=== PATIENT | female | born 1930 | race Caucasian/White ===

== ENCOUNTER 2016-10-03 12:41 | Inpatient (IN) | payer OTHER ==
--- NOTE | 2016-10-03 14:46 | PDOC ---
History of Present Illness - History of Present Illness Initial Comments: 10/03/16 15:01 Patient is an 86 year old female with significant medical hx of dementia who has been sent to the ED by Dr. Vick for bowel incontinence and AMS. The patient is an unreliable historian. Per daughter, the patient has recently developed bowel incontinence, having episodes multiple times per day. The patient is aware that she has to defecate but will have a bowel movement unknowingly. Daughter also reports the patient has been profoundly weak. <Cindy Cuenca - Last Filed: 10/03/16 15:42> - General History Source: Patient Exam Limitations: No Limitations <Darcy Anna - Last Filed: 10/03/16 18:23> - General Chief Complaint: Weakness Stated Complaint: LAB VARIANCE (PCP SENT) Time Seen by Provider: 10/03/16 13:20 Past History <Cindy Cuenca - Last Filed: 10/03/16 15:42> - Past Medical History Other medical history: PATIENT DENIES MEDICAL HX - Surgical History Abdominal Surgery: (TUBAL LIGATION) - Psycho/Social/Smoking Cessation Hx Suicidal Ideation: No Smoking History: Never smoked Hx Alcohol Use: No Drug/Substance Use Hx: No <Darcy Anna - Last Filed: 10/03/16 18:23> - Past Medical History Allergies/Adverse Reactions: Allergies Allergy/AdvReac Type Severity Reaction Status Date / Time No Known Allergies Allergy Verified 10/03/16 13:01 Review of Systems - Review of Systems Comments:: 10/03/16 15:01 GENERAL/CONSTITUTIONAL: No: fever, chills, loss of appetite. HEAD, EYES, EARS, NOSE AND THROAT: No: change in vision, ear pain, discharge, sore throat, throat swelling. CARDIOVASCULAR: No: chest pain, lightheadedness, palpitations, syncope RESPIRATORY: No: cough, shortness of breath, wheezing, hemoptysis, stridor. GASTROINTESTINAL: Yes: bowel incontinence. No: nausea, vomiting, abdominal cramping, diarrhea, rectal bleeding, constipation. GENITOURINARY: Yes: frequency. No: dysuria, hematuria, urgency, flank pain. MUSCULOSKELETAL: No: back pain, neck pain, joint pain, muscle swelling or pain SKIN AND BREASTS: No: lesions, pallor, rash or easy bruising. NEUROLOGIC: Yes: AMS, weakness No: headache, vertigo, paresthesias ENDOCRINE: No: unexplained weight gain or loss HEMATOLOGIC/LYMPHATIC: No: anemia, easy bleeding, swelling nodes <Cindy Cuenca - Last Filed: 10/03/16 15:42> *Physical Exam - Vital Signs Last Vital Signs Temp Pulse Resp BP Pulse Ox 125/56 10/03/16 12:56 - Physical Exam Comments: 10/03/16 15:05 GENERAL: The patient is in no acute distress. HEAD: Normal with no signs of trauma. EYES: PERRLA, EOMI, sclera anicteric, conjunctiva clear. ENT: Ears normal, nares patent, oropharynx clear without exudates. Moist mucous membranes. NECK: Normal range of motion, supple without lymphadenopathy, JVD, or masses. LUNGS: Breath sounds equal, clear to auscultation bilaterally. No wheezes, and no crackles. HEART:Regular rate and rhythm, normal S1 and S2 without murmur, rub or gallop. ABDOMEN: Soft, distended, nontender, normoactive bowel sounds. No guarding, no rebound. EXTREMITIES: Normal range of motion, no edema. No clubbing or cyanosis. No erythema, or tenderness. NEUROLOGICAL: Alert and oriented x2. Cranial nerves II through XII grossly intact. Normal speech. No focal neurological deficits. MUSCULOSKELETAL: Back non-tender to palpation, no CVA tenderness SKIN: Warm, Dry, normal turgor, no rashes or lesions noted. <JoellenWilsonCindy - Last Filed: 10/03/16 15:42> - Vital Signs Last Vital Signs Temp Pulse Resp BP Pulse Ox 125/56 10/03/16 12:56 <Darcy Anna - Last Filed: 10/03/16 18:23> Heart Score/ECG Review #1 ECG reviewed & interpreted by me at: 18:22 10/03/16 18:22 Twelve-lead EKG was performed and reviewed by me. There is normal sinus rhythm with a normal rate of 85 bpm. The axis is normal. The intervals are normal - pr: 124ms, QRS:76ms, QTc:485ms. There are no ST elevations or depressions. T waves upright <Darcy Anna - Last Filed: 10/03/16 18:23> ED Treatment Course - LABORATORY CBC & Chemistry Diagram: 10/03/16 14:00 10/03/16 14:00 - RADIOLOGY Radiograph Interpretation: 10/03/16 15:42 Chest X-Ray Impression: No evidence of vascular congestion, pulmonary infiltrates, or pneumothorax. Questionable blunting of the right costophrenic angle. Minimal right basilar atelectasis is suggested. Reported By: Ayan Valadez MD <Cindy Cuenca - Last Filed: 10/03/16 15:42> - LABORATORY CBC & Chemistry Diagram: 10/03/16 14:00 10/03/16 14:00 - RADIOLOGY Radiology Studies Ordered: Category Date Time Status CHEST X-RAY PORTABLE* [RAD] Stat Radiology 10/03/16 13:21 Completed <Darcy Anna - Last Filed: 10/03/16 18:23> Medical Decision Making - Medical Decision Making 10/03/16 14:45 A portion of this note was documented by scribe services under my direction. I have reviewed the details of the note, within reason, and agree with the documentation with the following case summary and management plan written by me. Nursing documentation reviewed and incorporated into medical decision making 10/03/16 16:45 This is a relatively healthy 86 yo F presenting to the ER with a complaint of "frequent urination" Her daughter has noted that over the past month, she has become increasingly confused Over the past week to 2 weeks pt has been weak, laying in the couch most of the day Pt knows that she needs to have a bowel movement and does it on herself No fevers Pt denies dysuria, hematuria, abd pain 10/03/16 16:45 Laboratory Tests 10/03/16 10/03/16 10/03/16 14:00 14:00 14:00 WBC 12.5 H Hgb 11.2 Hct 34.2 Plt Count 449 H Neutrophils % 81.8 Lymphocytes % 10.2 INR 1.43 H Sodium 138 Potassium 3.5 Chloride 98 Carbon Dioxide 33 H Anion Gap 7 L BUN 12 Creatinine 0.5 L Random Glucose 78 Creatine Kinase 49 Troponin I < 0.02 Urine Ketones Urine Blood Urine Nitrite Ur Leukocyte Esterase 10/03/16 15:45 WBC Hgb Hct Plt Count Neutrophils % Lymphocytes % INR Sodium Potassium Chloride Carbon Dioxide Anion Gap BUN Creatinine Random Glucose Creatine Kinase Troponin I Urine Ketones 1+ H Urine Blood 3+ H Urine Nitrite Positive Ur Leukocyte Esterase 2+ H Case reviewed with Dr Rogel Will admit to the hospitalist service Will treat uti Awaiting head CT Awaiting Abd and pelvis CT <Darcy Anna - Last Filed: 10/03/16 18:23> *DC/Admit/Observation/Transfer - Attestations Scribe Attestion: 10/03/16 15:05 Documentation prepared by Cindy Cuenca, acting as medical laboratory specialist for Darcy Anna MD. <Cindy Cuenca - Last Filed: 10/03/16 15:42> - Discharge Dispostion Admit: Yes <Darcy Anna - Last Filed: 10/03/16 18:23> Diagnosis at time of Disposition: UTI (urinary tract infection) Qualifiers: Urinary tract infection type: acute cystitis Hematuria presence: without hematuria Qualified Code(s): N30.00 - Acute cystitis without hematuria - Discharge Dispostion Condition at time of disposition: Stable - Referrals
[2016-10-03 14:50] LABS: BASOPHIL 0.6 % (0-2.0); EOSINOPHIL 0.7 % (0-4.5); MCH 28.4 pg (25.7-33.7); MCHC 32.9 g/dl (32.0-36.0); MEAN CELL VOLUME 86.4 fl (80-96); MEAN PLT VOLUME 7.5 fl (7.5-11.1); NEUTROPHILS 81.8 % (42.8-82.8); PLATELET COUNT 449 K/MM3 (134-434); RDW 14.7 % (11.6-15.6); WHITE BLOOD COUNT 12.5 K/mm3 (4.0-10.0)
[2016-10-03] MEDS ORDERED: SODIUM CHLORIDE 1,000 ML IV STA (15:05)
[2016-10-03 15:15] LABS: ALBUMIN 2.6 g/dl (3.4-5.0); ANION GAP 7 (8-16); BILIRUBIN,TOTAL 0.6 mg/dL (0.2-1.0); CALCIUM 8.5 mg/dL (8.5-10.1); CO2 33 mmol/L (21-32); CREATININE 0.5 mg/dL (0.55-1.02); GLUCOSE,RANDOM 78 mg/dL (74-106); SGOT/AST 14 U/L (15-37); SGPT/ALT 18 U/L (12-78); TOT PROT 6.2 g/dl (6.4-8.2)
[2016-10-03 15:17] LABS: ALK PHOS 77 U/L (45-117); TROPONIN I < 0.02 ng/ml (0.00-0.05)
[2016-10-03 15:27] LABS: INR 1.43 (0.82-1.09); PROTHROMBIN TIME (PATIENT) 15.9 SEC (9.98-11.88)
--- NOTE | 2016-10-03 15:43 | EKG ---
Test Reason : Blood Pressure : / mmHG Vent. Rate : 085 BPM Atrial Rate : 085 BPM P-R Int : 124 ms QRS Dur : 076 ms QT Int : 408 ms P-R-T Axes : 052 -17 050 degrees QTc Int : 485 ms SINUS RHYTHM WITH PREMATURE ATRIAL COMPLEXES WITH ABERRANT CONDUCTION OTHERWISE NORMAL ECG WHEN COMPARED WITH ECG OF 16-OCT-2006 07:50, NO SIGNIFICANT CHANGE WAS FOUND Confirmed by FEDERICA MYERS MD ([id number]) on 10/03/2016 3:43:03 PM Referred By: Confirmed By:FEDERICA MYERS MD
[2016-10-03 16:15] LABS: URINE APPEARANCE CLEAR; URINE BILIRUBIN 1+ (NEGATIVE); URINE COLOR DK. BROWN; URINE GLUCOSE (UA) NEGATIVE (NEGATIVE); URINE KETONE 1+ (NEGATIVE); URINE UROBILINOGEN 1.0 E.U/dl E.U./dl (0.2-1.0)
[2016-10-03 16:20] LABS: URINE BLOOD 3+ (NEGATIVE); URINE LEUK ESTERASE 2+ (NEGATIVE); URINE NITRITE POSITIVE (NEGATIVE); URINE PROTEIN 3+ (NEGATIVE)
[2016-10-03] MEDS ORDERED: CEFTRIAXONE 1 GM in DEXTROSE 5%-WATER - 50 ML IVPB ONE (16:33)
[2016-10-03] MEDS ORDERED: CEFTRIAXONE 50 ML ONE (16:42)
[2016-10-03] MEDS ORDERED: ACETAMINOPHEN 325 MG TABLET (FP) PO PRN (17:52)
--- NOTE | 2016-10-03 18:14 | HP ---
CHIEF COMPLAINT: fecal incontinence; increased urinary frequency PCP: Dr. Vick HISTORY OF PRESENT ILLNESS: 86 year old female with no significant past medical history except for dementia (poor historian), presents with 2 month history of fecal incontinence, (15-20x per day, as per ), and increased urinary frequency as per patient. Patient was taken to her PCP today, found to have 7lb weight loss since last year, dramatic decline in cognition. As per family patient is unaware of symptoms. They also state that she has had increased abdominal extension over the past two months. Patient denies dysuria, hematuria, melena, hematochezia, fever, chills, nausea, vomiting, abdominal pain, chest pain, sob, or travel. ER course was notable for: (1)wbc 12.5 (2)CXR negative for acute pathology (3)head ct and abd/pelvic ct pending Recent Travel: no PAST MEDICAL HISTORY: none PAST SURGICAL HISTORY: hip sx Social History: Smoking:no Alcohol:no Drugs: no Family History: Allergies No Known Allergies Allergy (Verified 10/03/16 13:01) HOME MEDICATIONS: REVIEW OF SYSTEMS CONSTITUTIONAL: Positive: generalized weakness, malaise, loss of appetite, weight change Absent: fever, chills, diaphoresis, HEENT: Absent: rhinorrhea, nasal congestion, throat pain, throat swelling, difficulty swallowing, mouth swelling, ear pain, eye pain, visual changes CARDIOVASCULAR: Absent: chest pain, syncope, palpitations, irregular heart rate, lightheadedness , peripheral edema RESPIRATORY: Absent: cough, shortness of breath, dyspnea with exertion, orthopnea, wheezing, stridor, hemoptysis GASTROINTESTINAL: Positive: abdominal distension, diarrhea Absent: abdominal pain, , nausea, vomiting, , constipation, melena, hematochezia GENITOURINARY: Absent: dysuria, frequency, urgency, hesitancy, hematuria, flank pain, genital pain MUSCULOSKELETAL: Absent: myalgia, arthralgia, joint swelling, back pain, neck pain SKIN: Absent: rash, itching, pallor HEMATOLOGIC/IMMUNOLOGIC: Absent: easy bleeding, easy bruising, lymphadenopathy, frequent infections ENDOCRINE: Absent: unexplained weight gain, unexplained weight loss, heat intolerance, cold intolerance NEUROLOGIC: POsitive: mental status changes, bladder or bowel incontinence Absent: headache, focal weakness or paresthesias, dizziness, unsteady gait, seizure, PSYCHIATRIC: Absent: anxiety, depression, suicidal or homicidal ideation, hallucinations. PHYSICAL EXAMINATION Vital Signs - 24 hr 10/03/16 10/03/16 12:56 16:00 Pulse Rate [ 65 Apical] Respiratory 16 Rate Blood Pressure 125/56 Blood Pressure 118/60 [Right] O2 Sat by Pulse 96 Oximetry (%) GENERAL: Awake, alert, and fully oriented, in no acute distress. mild cognitive impairment HEAD: Normal with no signs of trauma. EYES: Pupils equal, round and reactive to light, extraocular movements intact, sclera anicteric, conjunctiva clear. No lid lag. EARS, NOSE, THROAT: Ears normal, nares patent, oropharynx clear without exudates. Moist mucous membranes. NECK: Normal range of motion, supple without lymphadenopathy, JVD, or masses. LUNGS: Breath sounds equal, mildy course LL bases HEART: Regular rate and rhythm, normal S1 and S2 without murmur, rub or gallop. ABDOMEN: + distended, normoactive bowel sounds, no guarding, no rebound, no masses. MUSCULOSKELETAL: Normal range of motion at all joints. No bony deformities or tenderness. No CVA tenderness. UPPER EXTREMITIES: 2+ pulses, warm, well-perfused. No cyanosis. No clubbing. No peripheral edema. LOWER EXTREMITIES: 2+ pulses, warm, well-perfused. No calf tenderness. No peripheral edema. NEUROLOGICAL: Cranial nerves II-XII intact. Normal speech. Normal gait. PSYCHIATRIC: Cooperative. Good eye contact. Appropriate mood and affect. SKIN: Warm, dry, normal turgor, no rashes or lesions noted, normal capillary refill. Laboratory Results - last 24 hr 10/03/16 10/03/16 10/03/16 13:21 14:00 14:00 WBC 12.5 H RBC 3.96 Hgb 11.2 Hct 34.2 MCV 86.4 MCHC 32.9 RDW 14.7 Plt Count 449 H MPV 7.5 Neutrophils % 81.8 Lymphocytes % 10.2 Monocytes % 6.7 Eosinophils % 0.7 Basophils % 0.6 INR 1.43 H Sodium Potassium Chloride Carbon Dioxide Anion Gap BUN Creatinine Creat Clearance w eGFR Random Glucose Calcium Total Bilirubin AST ALT Alkaline Phosphatase Creatine Kinase Troponin I Total Protein Albumin Urine Color Urine Appearance Urine pH Ur Specific [place] Urine Protein Urine Glucose (UA) Urine Ketones Urine Blood Urine Nitrite Urine Bilirubin Urine Urobilinogen Ur Leukocyte Esterase Blood Type B POSITIVE Antibody Screen Negative 10/03/16 10/03/16 14:00 15:45 WBC RBC Hgb Hct MCV MCHC RDW Plt Count MPV Neutrophils % Lymphocytes % Monocytes % Eosinophils % Basophils % INR Sodium 138 Potassium 3.5 Chloride 98 Carbon Dioxide 33 H Anion Gap 7 L BUN 12 Creatinine 0.5 L Creat Clearance w eGFR > 60 Random Glucose 78 Calcium 8.5 Total Bilirubin 0.6 AST 14 L ALT 18 Alkaline Phosphatase 77 Creatine Kinase 49 Troponin I < 0.02 Total Protein 6.2 L Albumin 2.6 L Urine Color Dk. brown Urine Appearance Clear Urine pH 6.0 Ur Specific [place] >= 1.030 Urine Protein 3+ H Urine Glucose (UA) Negative Urine Ketones 1+ H Urine Blood 3+ H Urine Nitrite Positive Urine Bilirubin 1+ H Urine Urobilinogen 1.0 e.u/dl Ur Leukocyte Esterase 2+ H Blood Type Antibody Screen Abdominal/pelvic CT: IMPRESSION: a 13 x 10 x 9 cm hypodense septated structure is seen within the midline of the lower pelvis which appears to represent nonspecific uterine enlargement which could be on the basis of confluent degenerative leiomyomas versus representing partially necrotic malignant disease. There is resultant extrinsic compression of the contiguous rectum with resultant effacement of the rectal lumen. Marked fecal retention is seen within the remainder of the colon. A small amount of free fluid is noted within the abdomen and pelvis bilaterally. There is a small to moderate right pleural effusion. Several hepatic cysts are seen. ASSESSMENT/PLAN: 86 year old female with no significant past medical history except for mild dementia symptoms (according to daughter), presenting with fecal incontinence x2 months, increase urinary frequency [id number], progressive decline in mental status the past few days, artemio loss 7lbs in the past year. Admitted for UTI , diarrhea. #Altered mental status possibly secondary to UTI: -baseline dementia, worsening the past week -treat underlying UTI -Head CT negative for acute pathology #UTI: -ceftriaxone 1gm IVPB day 2 #diarrhea: r/o malignancy due to ct findings -stool culture, ova/parasites -abdominal/ Pelvic CT: details above: septated structure in pelvic; compression of rectum; effacement of rectal lumen -transvaginal ultrasound: consider manager diesel/onc consult pending results FEN: Fluids: po Electrolytes: wnl Diet: regular VTE prophylaxis: lovenox Disposition: inpatient management Visit type - Emergency Visit Emergency Visit: Yes ED Registration Date: 10/03/16 Care time: The patient presented to the Emergency Department on the above date and was hospitalized for further evaluation of their emergent condition. - New Patient This patient is new to me today: Yes Date on this admission: 10/04/16 - Critical Care Critical Care patient: No
--- NOTE | 2016-10-03 18:25 | PN ---
Teaching Attending Note Name of Resident: Audra Dorsey ATTENDING PHYSICIAN STATEMENT I saw and evaluated the patient. I reviewed the resident's note and discussed the case with the resident. I agree with the resident's findings and plan as documented. SUBJECTIVE: This is an 86-year-old woman with a history of dementia who comes to the ER because of incontinence of stool, urinary frequency, weight loss and worsening confusion. OBJECTIVE: Vital Signs Period Temp Pulse Resp BP Sys/Cruz Pulse Ox Last 24 Hr 65 16 118-125/56-60 96 HEART: S1 S2, RRR LUNGS: Clear with decreased BS at right base ABDOMEN: soft, mild distention with mild suprapubic tenderness, normal BS EXTREMITIES: no edema ASSESSMENT AND PLAN: This is an 86-year-old woman with a history of dementia who comes to the ER because she has been incontinent of stool x 2 months, has urinary frequency, has weight loss and worsening confusion. 1. Diarrhea with incontinence of stool - CT abdomen/pelvis ordered - Check stool culture, O&P, C. difficile 2. UTI - Rocephin given in ER - Follow up urine culture 3. Dementia
[2016-10-03 19:46] LABS: CALCIUM OXALATE CRYSTALS RARE /hpf (NONE SEEN); URINE BACTERIA MANY /hpf (NONE SEEN); URINE RBC 30 /hpf (0-3); URINE WBC 16 /hpf (3-5)
[2016-10-04 07:31] LABS: ALBUMIN 2.3 g/dl (3.4-5.0); ALK PHOS 73 U/L (45-117); ANION GAP 8 (8-16); BASOPHIL 0.4 % (0-2.0); BILIRUBIN,TOTAL 0.5 mg/dL (0.2-1.0); CALCIUM 7.9 mg/dL (8.5-10.1); CO2 29 mmol/L (21-32); COCKROFT - GAULT 62.4665; CREATININE 0.5 mg/dL (0.55-1.02); EOSINOPHIL 0.8 % (0-4.5); GLUCOSE,RANDOM 90 mg/dL (74-106); MAGNESIUM 1.9 mg/dL (1.8-2.4); MCH 29.4 pg (25.7-33.7); MCHC 33.8 g/dl (32.0-36.0); MEAN CELL VOLUME 87.1 fl (80-96); MEAN PLT VOLUME 7.4 fl (7.5-11.1); NEUTROPHILS 81.1 % (42.8-82.8); PHOSPHOROUS 3.2 mg/dL (2.5-4.9); PLATELET COUNT 443 K/MM3 (134-434); RDW 14.6 % (11.6-15.6); SGOT/AST 10 U/L (15-37); SGPT/ALT 17 U/L (12-78); TOT PROT 5.7 g/dl (6.4-8.2); WHITE BLOOD COUNT 11.1 K/mm3 (4.0-10.0)
[2016-10-04] MEDS: ENOXAPARIN NA (PORCINE) 40 MG/0.4 ML DISP.SYRIN SQ SCH (09:42)
[2016-10-04] MEDS: cefTRIAXone 1 GM/50 ML BAG (PRE-DOCKED) IVPB SCH (09:42)
--- NOTE | 2016-10-04 13:47 | PN ---
Physical Exam: SUBJECTIVE: Patient seen and examined, no complaints, still with fecal incontinence,, urinary symptoms improved. OBJECTIVE: Vital Signs Period Temp Pulse Resp BP Sys/Cruz Pulse Ox Last 24 Hr 97.6 F-98.6 F 78-85 16-20 106-127/53-67 94-96 GENERAL: The patient is awake, alert, and fully oriented, in no acute distress. HEAD: Normal with no signs of trauma. EYES: PERRL, extraocular movements intact, sclera anicteric, conjunctiva clear. No ptosis. ENT: Ears normal, nares patent, oropharynx clear without exudates, moist mucous membranes. NECK: Trachea midline, full range of motion, supple. LUNGS: Breath sounds equal, clear to auscultation bilaterally, no wheezes, no crackles, no accessory muscle use. HEART: Regular rate and rhythm, S1, S2 without murmur, rub or gallop. ABDOMEN: Soft, nontender, +distended, normoactive bowel sounds, no guarding, no rebound, no hepatosplenomegaly, no masses. EXTREMITIES: 2+ pulses, warm, well-perfused, no edema. NEUROLOGICAL: Cranial nerves II through XII grossly intact. Normal speech, gait not observed. PSYCH: Normal mood, normal affect. SKIN: Warm, dry, normal turgor, no rashes or lesions noted Laboratory Results - last 24 hr 10/04/16 10/04/16 06:40 06:40 WBC 11.1 H RBC 3.62 Hgb 10.6 L Hct 31.5 L MCV 87.1 MCHC 33.8 RDW 14.6 Plt Count 443 H MPV 7.4 L Neutrophils % 81.1 Lymphocytes % 10.5 Monocytes % 7.2 Eosinophils % 0.8 Basophils % 0.4 Sodium 138 Potassium 3.5 Chloride 101 Carbon Dioxide 29 Anion Gap 8 BUN 13 Creatinine 0.5 L Creat Clearance w eGFR > 60 Random Glucose 90 Calcium 7.9 L Phosphorus 3.2 Magnesium 1.9 Total Bilirubin 0.5 AST 10 L D ALT 17 Alkaline Phosphatase 73 Total Protein 5.7 L Albumin 2.3 L Active Medications Generic Name Dose Route Start Last Admin Trade Name Freq PRN Reason Stop Dose Admin Acetaminophen 650 mg 10/03/16 17:52 Tylenol - PO Q4H PRN FEVER OR PAIN Ceftriaxone Sodium 1 gm 10/04/16 10:00 10/04/16 09:42 Rocephin 1gm Ivpb (Pre-Docked) IVPB 1 gm DAILY ZHANE Administration Enoxaparin Sodium 40 mg 10/04/16 10:00 10/04/16 09:42 Lovenox - SQ 40 mg DAILY ZHANE Administration Abdominal/pelvic CT: IMPRESSION: a 13 x 10 x 9 cm hypodense septated structure is seen within the midline of the lower pelvis which appears to represent nonspecific uterine enlargement which could be on the basis of confluent degenerative leiomyomas versus representing partially necrotic malignant disease. There is resultant extrinsic compression of the contiguous rectum with resultant effacement of the rectal lumen. Marked fecal retention is seen within the remainder of the colon. A small amount of free fluid is noted within the abdomen and pelvis bilaterally. There is a small to moderate right pleural effusion. Several hepatic cysts are seen. ASSESSMENT/PLAN: 86 year old female with no significant past medical history except for mild dementia symptoms (according to daughter), presenting with fecal incontinence x2 months, increase urinary frequency [id number], progressive decline in mental status the past few days, artemio loss 7lbs in the past year. Admitted for UTI , diarrhea. #Altered mental status possibly secondary to UTI: -baseline dementia, worsening the past week -treat underlying UTI -Head CT negative for acute pathology #UTI: -ceftriaxone 1gm IVPB day 2 #diarrhea: r/o malignancy due to ct findings -stool culture, ova/parasites -abdominal/ Pelvic CT: details above: septated structure in pelvic; compression of rectal effacement of rectal lumen -transvaginal ultrasound: consider urogynecology physician/onc consult pending results -CEA, CA125, AFP tumor marker pending -WOUND CARE COORDINATOR consulted; I spoke with Dr. Saini will see her tonight -GI consulted Dr. Ca FEN: Fluids: po Electrolytes: wnl Diet: regular VTE prophylaxis: lovenox Disposition: inpatient management Visit type - Emergency Visit Emergency Visit: Yes ED Registration Date: 10/03/16 Care time: The patient presented to the Emergency Department on the above date and was hospitalized for further evaluation of their emergent condition. - New Patient This patient is new to me today: No - Critical Care Critical Care patient: No
--- NOTE | 2016-10-04 14:03 | PN ---
Teaching Attending Note Name of Resident: Audra Dorsey ATTENDING PHYSICIAN STATEMENT I saw and evaluated the patient. I reviewed the resident's note and discussed the case with the resident. I agree with the resident's findings and plan as documented. SUBJECTIVE: Patient is awake and alert. No complaints. OBJECTIVE: Vital Signs Period Temp Pulse Resp BP Sys/Cruz Pulse Ox Last 24 Hr 97.6 F-98.6 F 65-85 16-20 106-127/53-67 94-96 HEART: S1 S2, RRR LUNGS: Decreased BS at right base ABDOMEN: Soft, non-distended, normal BS, (+) suraprubic tenderness EXTREMITIES: No edema ASSESSMENT AND PLAN: This is an 86-year-old woman with a history of dementia who comes to the ER because she has been incontinent of stool x 2 months, has urinary frequency, has weight loss and worsening confusion. 1. Diarrhea with incontinence of stool - CT abdomen/pelvis shows a [id number] cm hypodense septated mass in midline of lower pelvis with extrinsic compression of rectum and marked fecal retention, small to moderate right pleural effusion - Stool studies pending - GI evaluation 2. UTI - Continue Rocephin - Follow up urine culture 3. Right pleural effusion - Chest CT pending 4. Pelvic mass, possibly uterine - Pelvic/transvaginal US pending - CEA, CA 125, AFP ordered - Kiln Furniture Saw Tender evaluation 5. Dementia 6. Malnutrition and failure to thrive
--- NOTE | 2016-10-04 14:24 | CON.PULM ---
Consult Consult Specialty:: PULMONARY Referred by:: RACHEL Reason for Consultation:: FAILURE TO THRIVE/PLEURAL EFFUSION - History of Present Illness History of Present Illness: Patient is an 86 year old female with significant medical hx of mild dementia who has been seen in my office due to failure to thrive, incintinence of stool and progressive dementia. The patient is an unreliable historian. Per daughter , the patient has recently developed bowel incontinence, having episodes multiple times per day. The patient is aware that she has to defecate but will have a bowel movement unknowingly. Daughter also reports the patient has been profoundly weak with decreased oral intake. No documented fever, chills or syncope. 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 Cardio/Vascular: No: AFIB Pulmonary: No: Asthma Gastrointestinal: No: Ascites, Cancer Hepatobiliary: No: Cirrhosis Renal/: No: Renal Failure Reproductive: Yes: Postmenopausal Heme/Onc: No: Anemia Infectious Disease: No: AIDS, C-Diff, Herpes Zoster, HIV, MRSA, STD's, Tuberculosis, VREF, Other Psych: No: Addictions, Anxiety, Bipolar, Depression, Panic, Psychosis, Schizophrenia, Other Musculoskeletal: No: Bursitis, Chronic low back pain, Hemiparesis, Hemiplegia, Osteoarthritis, Paraplegia, Other Rheumatology: No: Fibromyalgia, Gout, Lupus, Rheumatoid Arthritis, Sarcoidosis, Vasculitis, Other Endocrine: No: Irwinton's Disease, Williamson's Disease, Diabetes Insipidus, Diabetes Mellitus, Hyperparathyroidism, Hyperthyroidism, Hypothyroidism, Osteopenia, SIADH, Other - Past Surgical History Past Surgical History: Yes: None - Alcohol/Substance Use Hx Alcohol Use: No History of Substance Use: reports: None - Smoking History Smoking history: Never smoked - Social History Usual Living Arrangement: With Spouse ADL: Independent Place of : [facility] History of Recent Travel: No Home Medications - Allergies Allergies/Adverse Reactions: Allergies Allergy/AdvReac Type Severity Reaction Status Date / Time No Known Allergies Allergy Verified 10/03/16 13:01 Family Disease History - Family Disease History Family History: Unremarkable Review of Systems - Review of Systems Constitutional: reports: Lethargy, Loss of Appetite, Unintentional Wgt. Loss, Weakness. denies: Chills, Diaphoresis, Fever Eyes: denies: Blind Spots HENT: denies: Difficult Swallowing Physical Exam Vital Sings: Vital Signs Temperature 97.6 F 10/04/16 09:00 Pulse Rate 78 10/04/16 09:00 Respiratory Rate 18 10/04/16 09:00 Blood Pressure 127/67 10/04/16 09:00 O2 Sat by Pulse Oximetry (%) 94 L 10/04/16 11:50 Constitutional: Yes: Anxious Eyes: Yes: EOM Intact HENT: Yes: Normocephalic Neck: Yes: Trachea Midline Cardiovascular: Yes: Tachycardia, S1, S2 Respiratory: Yes: Diminished (RIGHT BASE) ...Clubbing: No Gastrointestinal: Yes: Soft, Tenderness (LOWER MID [place] REGION). No: Ascites Renal/: Yes: WNL Breast(s): Yes: WNL Musculoskeletal: Yes: WNL Edema: No Neurological: Yes: Alert Labs: CBC, BMP 10/04/16 06:40 10/04/16 06:40 Imaging - Results Chest X-ray: Image Reviewed Cat Scan: Image Reviewed Ultrasound: Pending Problem List - Problems (1) Pelvic mass in female Code(s): R19.00 - INTRA-ABD AND PELVIC SWELLING, MASS AND LUMP, UNSP SITE (2) UTI (urinary tract infection) Code(s): N39.0 - URINARY TRACT INFECTION, SITE NOT SPECIFIED Qualifiers: Urinary tract infection type: acute cystitis Hematuria presence: without hematuria Qualified Code(s): N30.00 - Acute cystitis without hematuria (3) Pleural effusion Code(s): J90 - PLEURAL EFFUSION, NOT ELSEWHERE CLASSIFIED (4) Dementia Code(s): F03.90 - UNSPECIFIED DEMENTIA WITHOUT BEHAVIORAL DISTURBANCE (5) Weight loss Code(s): R63.4 - ABNORMAL WEIGHT LOSS Assessment/Plan AGREE WITH WORK UP THUS FAR APPEARS TO HAVE AN UNDERLYING MALIGNANT PELVIC TUMOR CAUSING PLEURAL EFFUSION AND STOOL INCONTINENCE GI/CABLE SPLICING TECHNICIAN EVAL IV FLUIDS IF ORAL INTAKE IS POOR CHECK TUMOR MARKERS Kristina ROGERS MD
--- NOTE | 2016-10-04 16:06 | CONSULT ---
Consult Consult Specialty:: Surgery Referred by:: Pebbles Pham Reason for Consultation:: Pelvic mass - History of Present Illness Chief Complaint: C/O Urinary frequency, fecal incontinence, and urgency, increasing in severity over several years. 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 Cardio/Vascular: No: AFIB Pulmonary: No: Asthma Gastrointestinal: No: Ascites, Cancer Hepatobiliary: No: Cirrhosis Renal/: No: Renal Failure Infectious Disease: No: AIDS, C-Diff, Herpes Zoster, HIV, MRSA, STD's, Tuberculosis, VREF, Other Psych: No: Addictions, Anxiety, Bipolar, Depression, Panic, Psychosis, Schizophrenia, Other Musculoskeletal: No: Bursitis, Chronic low back pain, Hemiparesis, Hemiplegia, Osteoarthritis, Paraplegia, Other Rheumatology: No: Fibromyalgia, Gout, Lupus, Rheumatoid Arthritis, Sarcoidosis, Vasculitis, Other Endocrine: No: Jaime's Disease, Causey's Disease, Diabetes Insipidus, Diabetes Mellitus, Hyperparathyroidism, Hyperthyroidism, Hypothyroidism, Osteopenia, SIADH, Other - Past Surgical History Past Surgical History: Yes: None - Alcohol/Substance Use Hx Alcohol Use: No History of Substance Use: reports: None - Smoking History Smoking history: Never smoked - Social History Usual Living Arrangement: With Spouse ADL: Independent History of Recent Travel: No Home Medications - Allergies Allergies/Adverse Reactions: Allergies Allergy/AdvReac Type Severity Reaction Status Date / Time No Known Allergies Allergy Verified 10/03/16 13:01 Physical Exam Vital Signs: Vital Signs Temperature 98.4 F 10/04/16 14:51 Pulse Rate 86 10/04/16 14:51 Respiratory Rate 20 10/04/16 14:51 Blood Pressure 151/74 10/04/16 14:51 O2 Sat by Pulse Oximetry (%) 94 L 10/04/16 11:50 Gastrointestinal: Yes: Hernia (Ventral hernia in mid abdomen , just beowthe umbilicus. No mass palpated transabdominally. Rectal examination was not done as, Dr. Serrano had just done a rectal examination.) Renal/: No: CVA Tenderness - Left Labs: CBC, BMP 10/04/16 06:40 10/04/16 06:40 Imaging - Results Cat Scan: Report Reviewed (13 x10x9 cm. sepatated structire in the pelvis, ? degenerating fibroid uterus, vs malignancy), Image Reviewed Problem List - Problems (1) Pelvic mass in female Code(s): R19.00 - INTRA-ABD AND PELVIC SWELLING, MASS AND LUMP, UNSP SITE (2) Urinary frequency Code(s): R35.0 - FREQUENCY OF MICTURITION (3) Dementia Code(s): F03.90 - UNSPECIFIED DEMENTIA WITHOUT BEHAVIORAL DISTURBANCE Qualifiers: Alzheimer's disease onset: early-onset Dementia behavioral disturbance : without behavioral disturbance (4) Tenesmus Code(s): R19.8 - OTH SYMPTOMS AND SIGNS INVOLVING THE DGSTV SYS AND ABDOMEN (5) Ventral hernia Code(s): K43.9 - VENTRAL HERNIA WITHOUT OBSTRUCTION OR GANGRENE Assessment/Plan Pelvic mass , pressing on the rectum and bladder. ? fibroid. Suggest examination under anesthesia, machinist apprentice wood examination,. This probably a pelvic tumor arising from the uterus. CT scan does not delineate a plane between the rectum and the uterus. Suggest MRI of the pelvis. Will follow.
--- NOTE | 2016-10-04 16:13 | CON.GI ---
Consult Consult Specialty:: GI Referred by:: Hospitalist service Reason for Consultation:: Diarrhea - History of Present Illness Chief Complaint: "I urinate alot" History of Present Illness: 86 F admitted from home through [facility] ER for evaluation of progressive lethargy for a week. She also has had worsening urinary frequency as well as fecal urgency / incontinence. CT scan reveals a large pelvic mass compressing the rectum. Transvaginal US reveals a large mass suspicious for uterine vs. 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 No: Renal Failure Infectious Disease: No: AIDS, C-Diff, Herpes Zoster, HIV, MRSA, STD's, Tuberculosis, VREF, Other Psych: No: Addictions, Anxiety, Bipolar, Depression, Panic, Psychosis, Schizophrenia, Other Musculoskeletal: No: Bursitis, Chronic low back pain, Hemiparesis, Hemiplegia, Osteoarthritis, Paraplegia, Other Rheumatology: No: Fibromyalgia, Gout, Lupus, Rheumatoid Arthritis, Sarcoidosis, Vasculitis, Other Endocrine: No: Pettigrew's Disease, Daya's Disease, Diabetes Insipidus, Diabetes Mellitus, Hyperparathyroidism, Hyperthyroidism, Hypothyroidism, Osteopenia, SIADH, Other - Past Surgical History Additional Surgical History: Myomectomy - Alcohol/Substance Use Hx Alcohol Use: No History of Substance Use: reports: None - Smoking History Smoking history: Never smoked - Social History Usual Living Arrangement: With Spouse ADL: Independent 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 No family history of colorectal cancer Review of Systems - Review of Systems Constitutional: reports: Unintentional Wgt. Loss Gastrointestinal: reports: Bloating, Diarrhea. denies: Abdominal Pain, Constipation, Nausea, Vomiting Physical Exam-GI Vital Signs: Vital Signs Temperature 98.4 F 10/04/16 14:51 Pulse Rate 86 10/04/16 14:51 Respiratory Rate 20 10/04/16 14:51 Blood Pressure 151/74 10/04/16 14:51 O2 Sat by Pulse Oximetry (%) 94 L 10/04/16 11:50 Constitutional: Yes: Calm Eyes: Yes: Sclera Icterus Cardiovascular: Yes: Pulse Irregular (? premature beats). No: Murmur Respiratory: Yes: Diminished (at bases b/l) Gastrointestinal Inspection: No: Distention ...Auscultate: Yes: Normoactive Bowel Sounds ...Palpate: Yes: Tenderness (palpation of the mid pelvis) ...Percussion: Yes: Tympanitic (abdomen soft, mildly protuberant) ...Rectal Exam: Yes: Other (significant anterior extrinsic compression of the rectum, no stool.) Edema: No Neurological: Yes: Alert, Oriented Labs: CBC, BMP 10/04/16 06:40 10/04/16 06:40 INR, PTT INR 1.43 (0.82-1.09) H 10/03/16 14:00 Hepatic Panel Total Bilirubin 0.5 mg/dL (0.2-1.0) 10/04/16 06:40 AST 10 U/L (15-37) L D 10/04/16 06:40 ALT 17 U/L (12-78) 10/04/16 06:40 Alkaline Phosphatase 73 U/L (45-117) 10/04/16 06:40 Albumin 2.3 g/dl (3.4-5.0) L 10/04/16 06:40 Assessment/Plan Extrinsic compression of the colon: Secondary to pelvic mass, likely of computer analyst origin Will need surgical / computer analyst evaluation with therapy to relieve the mechanical obstruction If worsening abdominal distention / vomiting, may benefit from NG-tube Dr. Moon ordered pelvic MRI
[2016-10-04] MEDS ORDERED: CEFTRIAXONE 1 GM in DEXTROSE 5%-WATER - 50 ML IVPB ONE (18:22)
[2016-10-05 09:01] LABS: BASOPHIL 0.3 % (0-2.0); EOSINOPHIL 0.4 % (0-4.5); MCH 29.1 pg (25.7-33.7); MCHC 33.3 g/dl (32.0-36.0); MEAN CELL VOLUME 87.3 fl (80-96); MEAN PLT VOLUME 6.9 fl (7.5-11.1); NEUTROPHILS 81.6 % (42.8-82.8); PLATELET COUNT 461 K/MM3 (134-434); RDW 14.9 % (11.6-15.6); WHITE BLOOD COUNT 11.7 K/mm3 (4.0-10.0)
[2016-10-05 09:31] LABS: ALBUMIN 2.5 g/dl (3.4-5.0); ANION GAP 10 (8-16); CALCIUM 8.4 mg/dL (8.5-10.1); CO2 29 mmol/L (21-32); COCKROFT - GAULT 62.4665; CREATININE 0.5 mg/dL (0.55-1.02); GLUCOSE,RANDOM 104 mg/dL (74-106); SGOT/AST 17 U/L (15-37); SGPT/ALT 20 U/L (12-78)
[2016-10-05 09:33] LABS: ALK PHOS 78 U/L (45-117); BILIRUBIN,TOTAL 0.6 mg/dL (0.2-1.0); TOT PROT 6.2 g/dl (6.4-8.2)
--- NOTE | 2016-10-05 10:18 | PN ---
Physical Exam: SUBJECTIVE: Patient seen and examined. She has no complaints. She denies chest pain, SOB, abdominal pain, nausea, vomiting, diarrhea, dysuria. OBJECTIVE: Vital Signs Period Temp Pulse Resp BP Sys/Cruz Pulse Ox Last 24 Hr 97.6 F-98.6 F 83-98 18-22 112-151/59-79 94-98 GENERAL: The patient is awake, alert, and in no acute distress. LUNGS: Clear to auscultation bilaterally with decreased breath sounds at right base, no wheezes, no crackles, no accessory muscle use. HEART: Regular rate and rhythm, S1, S2 without murmur, rub or gallop. ABDOMEN: Soft, nontender, distended, normoactive bowel sounds, no guarding, no rebound, no hepatosplenomegaly. EXTREMITIES: 2+ pulses, warm, well-perfused, no edema. Laboratory Results - last 24 hr 10/04/16 10/05/16 10/05/16 17:00 07:30 07:30 WBC 11.7 H RBC 3.81 Hgb 11.1 Hct 33.3 MCV 87.3 MCHC 33.3 RDW 14.9 Plt Count 461 H MPV 6.9 L Neutrophils % 81.6 Lymphocytes % 10.6 Monocytes % 7.1 Eosinophils % 0.4 Basophils % 0.3 Sodium 141 Potassium 3.6 Chloride 102 Carbon Dioxide 29 Anion Gap 10 BUN 15 Creatinine 0.5 L Creat Clearance w eGFR > 60 Random Glucose 104 Calcium 8.4 L Total Bilirubin 0.6 AST 17 D ALT 20 Alkaline Phosphatase 78 Total Protein 6.2 L Albumin 2.5 L Stool Occult Blood Negative Active Medications Generic Name Dose Route Start Last Admin Trade Name Freq PRN Reason Stop Dose Admin Acetaminophen 650 mg 10/03/16 17:52 Tylenol - PO Q4H PRN FEVER OR PAIN Ceftriaxone Sodium 1 gm 10/04/16 10:00 10/04/16 09:42 Rocephin 1gm Ivpb (Pre-Docked) IVPB 1 gm DAILY ZAHNE Administration Enoxaparin Sodium 40 mg 10/04/16 10:00 10/04/16 09:42 Lovenox - SQ 40 mg DAILY ZHANE Administration ASSESSMENT/PLAN: This is an 86-year-old woman with a history of dementia who comes to the ER because she has been incontinent of stool x 2 months, has urinary frequency, has weight loss and worsening confusion. 1. Diarrhea with incontinence of stool - CT abdomen/pelvis shows a [id number] cm hypodense septated mass in midline of lower pelvis with extrinsic compression of rectum and marked fecal retention, small to moderate right pleural effusion - Stool studies pending - GI, surgery consults appreciated 2. UTI - Continue Rocephin - Urine culture growing lactose fermenting GNR 3. Right pleural effusion - Chest CT pending 4. Pelvic mass, possibly uterine - Pelvic/TV US shows a large heterogeneous solid mass that appears to be inseparable from uterus - MRI of pelvis ordered - CEA, CA 125, AFP pending - Awaiting transition lead evaluation 5. Dementia 6. Malnutrition and failure to thrive Visit type - Emergency Visit Emergency Visit: Yes ED Registration Date: 10/03/16 Care time: The patient presented to the Emergency Department on the above date and was hospitalized for further evaluation of their emergent condition. - New Patient This patient is new to me today: No - Critical Care Critical Care patient: No - Discharge Referral [facility]erred to [facility] No
[2016-10-05] MEDS: ENOXAPARIN NA (PORCINE) 40 MG/0.4 ML DISP.SYRIN SQ SCH (10:21)
[2016-10-05] MEDS: cefTRIAXone 1 GM/50 ML BAG (PRE-DOCKED) IVPB SCH (10:21)
--- NOTE | 2016-10-05 13:18 | CON.OBG ---
Consult Consult Specialty:: reporting process consultant Referred by:: Audra Schwartz Reason for Consultation:: Pelvic mass - History of Present Illness Chief Complaint: 86 yrs ,Menopause at age 55yrs is admitted for progressively increasing frequency urination, incotinence, & fecal incontinece, experienced for last 2 months History of Present Illness: pt c/o burning urination for past 2 months . frequency of urination is 3-5 times at night , recently it has become 7 times she states besides reg Bm twice a day she is passing orange color fecal, or fluid from rectum No c/o vaginal bleeding , or postmenopausal bleeding at all. h/o HRT taken for very short time may be 1 year after menopause at age 55yrs . patient have not been to see Industrial Designer in many years she stopped doing mammograms about 5-6 yrs ago. . Past MH : FMP ( menarche) 9 yrs age LMP ( menopause ) 55 yrs age [place] Mh 28 days cycle -5-6 days bleeding, mild cramps H/o Abdominal Myomectomy done 1958 Past OB HX : 3 1964, 1956, 1960 . 2 Sp ab Sexually not active approx 8-10 years. - History Source History Provided By: Patient, Medical Record Limitations to Obtaining History: Dementia (as documented in the chart.. 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 No: Ascites , Cancer Hepatobiliary: No: Cirrhosis Renal/: Yes: Other (Uterine Fibroids). No: Renal Failure Infectious Disease: No: AIDS, C-Diff, Herpes Zoster, HIV, MRSA, STD's, Tuberculosis, VREF, Other Psych: No: Addictions, Anxiety, Bipolar, Depression, Panic, Psychosis, Schizophrenia, Other Musculoskeletal: No: Bursitis, Chronic low back pain, Hemiparesis, Hemiplegia, Osteoarthritis, Paraplegia, Other Rheumatology: No: Fibromyalgia, Gout, Lupus, Rheumatoid Arthritis, Sarcoidosis, Vasculitis, Other Endocrine: No: Cortland's Disease, Daya's Disease, Diabetes Insipidus, Diabetes Mellitus, Hyperparathyroidism, Hyperthyroidism, Hypothyroidism, Osteopenia, SIADH, Other - Past Surgical History Past Surgical History: Yes: None, Colonoscopy (does not rember the year ) Additional Surgical History: Myomectomy 1959. 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 No family history of colorectal cancer Review of Systems - Review of Systems Constitutional: reports: Unintentional Wgt. Loss (noted by Pcp 7 lbs in last 9 months). denies: Loss of Appetite Eyes: reports: No Symptoms HENT: reports: No Symptoms Neck: reports: No Symptoms Cardiovascular: reports: No Symptoms Respiratory: reports: No Symptoms Gastrointestinal: reports: Other (abdominal distention like pot belly noted by family in last 6 months). denies: Abdominal Pain, Vomiting Genitourinary: reports: Burning, Frequency, Urgency. 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 logical questioning & interst in diagnosis of her condition expressed) Neck: Yes: WNL Cardiovascular: Yes: WNL Respiratory: Yes: WNL Gastrointestinal: Yes: Normal Bowel Sounds, Distention (mild distention. diverication of Rectus Muscle, ventral hernia), Other (unable to palpate any mass p/a). No: Tenderness ...Rectal Exam: Yes: Mass (felt anteriorly irregular by rectal exam , unable to say extrinsic mass. no fecal matter noed by rectal exam) Renal/: No: Vaginal Bleeding Internal Exam Deferred: Yes Vaginal Exam: Yes: Other (pt unable to tolerate exam vagina atrophic, mass felt pushing posterior vaginal wall, it is not fecal matter as per rectal exam , blood staining noted while trying to examine feel for mass, unable to do) Cervix: Yes: Other (unable to feel seprately) Uterus: Yes: Other (unable to evaluate due to pain) Breast(s): Yes: WNL Extremities: Yes: Other (varicose veins). No: Calf Tenderness Edema: No Integumentary: Yes: Other (bruises) Neurological: Yes: WNL, Alert, Oriented. No: Confusion ...Motor Strength: WNL Psychiatric: Yes: WNL, Alert, Oriented Labs: CBC, BMP 10/05/16 07:30 10/05/16 07:30 Microbiology 10/03/16 15:45 Urine - Urine Clean Catch Urine Culture - Preliminary Lactose Fermenting Neg Bacilli Laboratory Tests 10/03/16 10/04/16 15:45 17:00 Urine Protein 3+ H Urine Ketones 1+ H Urine Blood 3+ H Urine Nitrite Positive Urine Urobilinogen 1.0 e.u/dl Urine RBC 30 Urine WBC 16 Stool Occult Blood Negative Problem List - Problems (1) Pelvic mass in female Code(s): R19.00 - INTRA-ABD AND PELVIC SWELLING, MASS AND LUMP, UNSP SITE (2) UTI (urinary tract infection) Code(s): N39.0 - URINARY TRACT INFECTION, SITE NOT SPECIFIED Qualifiers: Urinary tract infection type: acute cystitis Hematuria presence: without hematuria Qualified Code(s): N30.00 - Acute cystitis without hematuria (3) Urinary frequency Code(s): R35.0 - FREQUENCY OF MICTURITION Assessment/Plan 86 yrs post menopause , increase frequency burning of urination, fecal incontinence UTI , Positive urine culture for Gram Neg bacilli, RX Iv Ceftriaxone [address]/Pelvic us in favor of midline pelvic mass [id number] , poorly visualized on sono , unable to differentiate from adnexal mass EM?1.2 cm Symptoms are due to pelvic mass compressing bladder & rectum. probably Uterine mass.Fibroids ,since she has h/o Myomectomy in the past . Frequency of urination could be due to overflow incontinence , Urology consult, Cystoscopy will be useful as diagnostic procedure . Colonoscopy also may help in diagnosis MRI pelvis & Tumor markers pending . I recommend Parking Enforcer Oncology referal after MRI & Tumor marker reports . Dr Boni Martell comes to [facility] two Tuesdays in a month , will do consult as an outpatient . Tel # [phone] . Patient herself wants to know if she has cancer or not , she wants to know r /b/a if surgery is done states she deserves quality of life , she can not go anywhere or do anything due to frequency of urination.. Daughters expressed if it is cancer they want her to go to [facility] in [facility], since they also have aprt in [facility] . In my opinion she will need surgery for excision of pelvic mass to get relief from symptoms .
--- NOTE | 2016-10-05 14:10 | PN ---
Progress Note (short form) - Note Progress Note: PULMONARY Still with urinary frequency. No shortness of breath or chest pain. No fevers or chills. Last Vital Signs Temp Pulse Resp BP Pulse Ox 97.6 F 83 22 141/70 98 10/05/16 07:00 10/05/16 07:00 10/05/16 07:00 10/05/16 07:00 10/04/16 21:00 Gen: NAD at rest Heart: RRR Lung: decreased breath sounds at the bases Abd: soft, nontender Ext: no edema CBC, BMP 10/05/16 07:30 10/05/16 07:30 Active Medications Acetaminophen (Tylenol -) 650 mg PO Q4H PRN PRN Reason: FEVER OR PAIN Ceftriaxone Sodium (Rocephin 1gm Ivpb (Pre-Docked)) 1 gm IVPB DAILY [facility] Last Admin: 10/05/16 10:21 Dose: 1 gm Enoxaparin Sodium (Lovenox -) 40 mg SQ DAILY [facility] Last Admin: 10/05/16 10:21 Dose: 40 mg A/P UTI Urinary Frequency Pelvic Mass Pleural Effusion likely reactive - continue antibiotics - f/u cultures - CLEANING SUPERVISOR/ evaluation - DVT prophylaxis
--- NOTE | 2016-10-05 14:37 | PN ---
Progress Note, Physician - Current Medication List Current Medications: Active Medications Acetaminophen (Tylenol -) 650 mg PO Q4H PRN PRN Reason: FEVER OR PAIN Ceftriaxone Sodium (Rocephin 1gm Ivpb (Pre-Docked)) 1 gm IVPB DAILY [facility] Last Admin: 10/05/16 10:21 Dose: 1 gm Enoxaparin Sodium (Lovenox -) 40 mg SQ DAILY [facility] Last Admin: 10/05/16 10:21 Dose: 40 mg - Objective Vital Signs: Vital Signs Temperature 97.6 F 10/05/16 07:00 Pulse Rate 83 10/05/16 07:00 Respiratory Rate 22 10/05/16 07:00 Blood Pressure 141/70 10/05/16 07:00 O2 Sat by Pulse Oximetry (%) 98 10/04/16 21:00 Labs: CBC, BMP 10/05/16 07:30 10/05/16 07:30 INR, PTT INR 1.43 (0.82-1.09) H 10/03/16 14:00 Problem List - Problems (1) Pelvic mass in female Code(s): R19.00 - INTRA-ABD AND PELVIC SWELLING, MASS AND LUMP, UNSP SITE (2) Urinary frequency Code(s): R35.0 - FREQUENCY OF MICTURITION (3) Dementia Code(s): F03.90 - UNSPECIFIED DEMENTIA WITHOUT BEHAVIORAL DISTURBANCE Qualifiers: Alzheimer's disease onset: early-onset Dementia behavioral disturbance : without behavioral disturbance (4) Tenesmus Code(s): R19.8 - OTH SYMPTOMS AND SIGNS INVOLVING THE DGSTV SYS AND ABDOMEN (5) Ventral hernia Code(s): K43.9 - VENTRAL HERNIA WITHOUT OBSTRUCTION OR GANGRENE Assessment/Plan Surgery: No change in patients staus. loan representative consult noted . Will wait for MRI. Continuity Clerk and gu consult obtained. I spoke to patient's daughter, they have plans to take the patient to the "city:" for treatment.
--- NOTE | 2016-10-05 18:28 | EKG ---
Test Reason : Blood Pressure : / mmHG Vent. Rate : 069 BPM Atrial Rate : 069 BPM P-R Int : 128 ms QRS Dur : 082 ms QT Int : 408 ms P-R-T Axes : 038 002 046 degrees QTc Int : 437 ms SINUS RHYTHM WITH SINUS ARRHYTHMIA WITH PREMATURE ATRIAL COMPLEXES OTHERWISE NORMAL ECG WHEN COMPARED WITH ECG OF 03-OCT-2016 14:15, NO SIGNIFICANT CHANGE WAS FOUND Confirmed by JAHAIRA HINTON, SENTHIL ([id number]) on 10/05/2016 6:28:05 PM Referred By: Confirmed By:SENTHIL CAMPO MD
[2016-10-06 08:41] LABS: BASOPHIL 0.4 % (0-2.0); EOSINOPHIL 0.7 % (0-4.5); MCH 28.8 pg (25.7-33.7); MCHC 32.9 g/dl (32.0-36.0); MEAN CELL VOLUME 87.4 fl (80-96); MEAN PLT VOLUME 7.2 fl (7.5-11.1); NEUTROPHILS 83.1 % (42.8-82.8); PLATELET COUNT 405 K/MM3 (134-434); RDW 14.9 % (11.6-15.6); WHITE BLOOD COUNT 14.1 K/mm3 (4.0-10.0)
[2016-10-06 09:05] LABS: CALCIUM 8.5 mg/dL (8.5-10.1); COCKROFT - GAULT 62.135; CREATININE 0.5 mg/dL (0.55-1.02)
[2016-10-06] MEDS: ENOXAPARIN NA (PORCINE) 40 MG/0.4 ML DISP.SYRIN SQ SCH (10:05)
[2016-10-06] MEDS: cefTRIAXone 1 GM/50 ML BAG (PRE-DOCKED) IVPB SCH (10:05)
--- NOTE | 2016-10-06 12:08 | PN ---
Physical Exam: SUBJECTIVE: Patient seen and examined. She continues to have urinary frequency. Otherwise, she feels well. OBJECTIVE: Vital Signs Period Temp Pulse Resp BP Sys/Cruz Pulse Ox Last 24 Hr 97.3 F-98.7 F 83-103 18-20 105-147/65-94 98 GENERAL: The patient is awake, alert, and in no acute distress. LUNGS: Clear to auscultation bilaterally with decreased breath sounds at right base, no wheezes, no crackles, no accessory muscle use. HEART: Regular rate and rhythm, S1, S2 without murmur, rub or gallop. ABDOMEN: Soft, nontender, distended, normoactive bowel sounds, no guarding, no rebound, no hepatosplenomegaly. EXTREMITIES: 2+ pulses, warm, well-perfused, no edema. Laboratory Results - last 24 hr 10/04/16 10/06/16 10/06/16 16:00 07:30 07:30 WBC 14.1 H RBC 3.83 Hgb 11.0 Hct 33.5 MCV 87.4 MCHC 32.9 RDW 14.9 Plt Count 405 MPV 7.2 L Neutrophils % 83.1 H Lymphocytes % 9.7 Monocytes % 6.1 Eosinophils % 0.7 Basophils % 0.4 Sodium 140 Potassium 3.3 L Chloride 103 Carbon Dioxide 27 Anion Gap 10 BUN 14 Creatinine 0.5 L Random Glucose 91 Calcium 8.5 Tumor Marker AFP 3.7 Carcinoembryonic Ag 85.3 H CA 125 Antigen 71.8 H Active Medications Generic Name Dose Route Start Last Admin Trade Name Freq PRN Reason Stop Dose Admin Acetaminophen 650 mg 10/03/16 17:52 Tylenol - PO Q4H PRN FEVER OR PAIN Ceftriaxone Sodium 1 gm 10/04/16 10:00 10/06/16 10:05 Rocephin 1gm Ivpb (Pre-Docked) IVPB 1 gm DAILY [facility] Administration Enoxaparin Sodium 40 mg 10/04/16 10:00 10/06/16 10:05 Lovenox - SQ 40 mg DAILY [facility] Administration ASSESSMENT/PLAN: This is an 86-year-old woman with a history of dementia who comes to the ER because she has been incontinent of stool x 2 months, has urinary frequency, has weight loss and worsening confusion. 1. Diarrhea with incontinence of stool - CT abdomen/pelvis shows a [id number] cm hypodense septated mass in midline of lower pelvis with extrinsic compression of rectum and marked fecal retention, small to moderate right pleural effusion 2. E. coli UTI - Continue Rocephin (day 4) 3. Acute metabolic encephalopathy, POA, secondary to UTI - Improved 4. Right pleural effusion 5. Pelvic mass, possibly uterine - Pelvic/TV US shows a large heterogeneous solid mass that appears to be inseparable from uterus - MRI of pelvis pending - CEA, CA 125 elevated - AFP normal - Patient states she would choose to not undergo surgery, however, both she and her family would prefer that any further treatment be done in [facility] 6. Dementia 7. Malnutrition and failure to thrive Visit type - Emergency Visit Emergency Visit: Yes ED Registration Date: 10/03/16 Care time: The patient presented to the Emergency Department on the above date and was hospitalized for further evaluation of their emergent condition. - New Patient This patient is new to me today: No - Critical Care Critical Care patient: No - Discharge Referral Referred to [facility] Med P.C.: No
--- NOTE | 2016-10-06 12:21 | PN ---
Progress Note (short form) - Note Progress Note: PULMONARY Still with urinary frequency. No shortness of breath or chest pain. No fevers or chills. Last Vital Signs Temp Pulse Resp BP Pulse Ox 98.7 F 92 H 20 138/94 98 10/06/16 06:00 10/06/16 06:00 10/06/16 06:00 10/06/16 06:00 10/05/16 21:00 Gen: NAD at rest Heart: RRR Lung: decreased breath sounds at the bases Abd: soft, nontender Ext: no edema CBC, BMP 10/06/16 07:30 10/06/16 07:30 Active Medications Acetaminophen (Tylenol -) 650 mg PO Q4H PRN PRN Reason: FEVER OR PAIN Ceftriaxone Sodium (Rocephin 1gm Ivpb (Pre-Docked)) 1 gm IVPB DAILY [facility] Last Admin: 10/06/16 10:05 Dose: 1 gm Enoxaparin Sodium (Lovenox -) 40 mg SQ DAILY [facility] Last Admin: 10/06/16 10:05 Dose: 40 mg Potassium Chloride (K-Dur -) 40 meq PO ONCE ONE Stop: 10/06/16 12:36 A/P UTI Urinary Frequency Pelvic Mass Pleural Effusion likely reactive - continue antibiotics - await MRI pelvis read - DVT prophylaxis - family has expressed that they would like to continue treatment in [facility]
[2016-10-06] MEDS ORDERED: POTASSIUM CHLORIDE TABS 20 MEQ TABLET.ER (FP) PO ONE (12:35)
--- NOTE | 2016-10-06 16:47 | PN ---
Progress Note, Physician - Current Medication List Current Medications: Active Medications Acetaminophen (Tylenol -) 650 mg PO Q4H PRN PRN Reason: FEVER OR PAIN Ceftriaxone Sodium (Rocephin 1gm Ivpb (Pre-Docked)) 1 gm IVPB DAILY [facility] Last Admin: 10/06/16 10:05 Dose: 1 gm Enoxaparin Sodium (Lovenox -) 40 mg SQ DAILY [facility] Last Admin: 10/06/16 10:05 Dose: 40 mg - Objective Vital Signs: Vital Signs Temperature 98.4 F 10/06/16 13:55 Pulse Rate 90 10/06/16 13:55 Respiratory Rate 17 10/06/16 13:55 Blood Pressure 101/48 10/06/16 13:55 O2 Sat by Pulse Oximetry (%) 98 10/06/16 09:00 Labs: CBC, BMP 10/06/16 07:30 10/06/16 07:30 INR, PTT INR 1.43 (0.82-1.09) H 10/03/16 14:00 Problem List - Problems (1) Pelvic mass in female Code(s): R19.00 - INTRA-ABD AND PELVIC SWELLING, MASS AND LUMP, UNSP SITE (2) Urinary frequency Code(s): R35.0 - FREQUENCY OF MICTURITION (3) Dementia Code(s): F03.90 - UNSPECIFIED DEMENTIA WITHOUT BEHAVIORAL DISTURBANCE Qualifiers: Alzheimer's disease onset: early-onset Dementia behavioral disturbance : without behavioral disturbance (4) Tenesmus Code(s): R19.8 - OTH SYMPTOMS AND SIGNS INVOLVING THE DGSTV SYS AND ABDOMEN (5) Ventral hernia Code(s): K43.9 - VENTRAL HERNIA WITHOUT OBSTRUCTION OR GANGRENE Assessment/Plan MRI to be reported . ? Pelvic mass , ? uterine. Family wants to take her to [facility] for any surgical intervention. No intestinal obstruction.
[2016-10-07 06:57] LABS: BASOPHIL 0.2 % (0-2.0); EOSINOPHIL 0.7 % (0-4.5); MCH 28.6 pg (25.7-33.7); MCHC 32.4 g/dl (32.0-36.0); MEAN CELL VOLUME 88.1 fl (80-96); MEAN PLT VOLUME 7.1 fl (7.5-11.1); NEUTROPHILS 84.2 % (42.8-82.8); PLATELET COUNT 442 K/MM3 (134-434); WHITE BLOOD COUNT 18.9 K/mm3 (4.0-10.0)
[2016-10-07 07:23] LABS: CALCIUM 8.4 mg/dL (8.5-10.1); COCKROFT - GAULT 63.053; CREATININE 0.5 mg/dL (0.55-1.02)
--- NOTE | 2016-10-07 07:54 | PN ---
Physical Exam: SUBJECTIVE: Patient seen and examined OBJECTIVE: Vital Signs Period Temp Pulse Resp BP Sys/Cruz Pulse Ox Last 24 Hr 97.7 F-99.2 F 83-97 17-20 101-141/48-77 98-98 GENERAL: The patient is awake, alert, and fully oriented, in no acute distress. HEAD: Normal with no signs of trauma. EYES: PERRL, extraocular movements intact, sclera anicteric, conjunctiva clear. No ptosis. ENT: Ears normal, nares patent, oropharynx clear without exudates, moist mucous membranes. NECK: Trachea midline, full range of motion, supple. LUNGS: Breath sounds equal, clear to auscultation bilaterally, no wheezes, no crackles, no accessory muscle use. HEART: Regular rate and rhythm, S1, S2 without murmur, rub or gallop. ABDOMEN: Soft, nontender, nondistended, normoactive bowel sounds, no guarding, no rebound, no hepatosplenomegaly, no masses. EXTREMITIES: 2+ pulses, warm, well-perfused, no edema. NEUROLOGICAL: Cranial nerves II through XII grossly intact. Normal speech, gait not observed. PSYCH: Normal mood, normal affect. SKIN: Warm, dry, normal turgor, no rashes or lesions noted Laboratory Results - last 24 hr 10/04/16 10/06/16 10/06/16 16:00 07:30 07:30 WBC 14.1 H RBC 3.83 Hgb 11.0 Hct 33.5 MCV 87.4 MCHC 32.9 RDW 14.9 Plt Count 405 MPV 7.2 L Neutrophils % 83.1 H Lymphocytes % 9.7 Monocytes % 6.1 Eosinophils % 0.7 Basophils % 0.4 Sodium 140 Potassium 3.3 L Chloride 103 Carbon Dioxide 27 Anion Gap 10 BUN 14 Creatinine 0.5 L Random Glucose 91 Calcium 8.5 Tumor Marker AFP 3.7 Carcinoembryonic Ag 85.3 H CA 125 Antigen 71.8 H 10/07/16 10/07/16 06:15 06:15 WBC 18.9 H D RBC 3.77 Hgb 10.8 Hct 33.2 MCV 88.1 MCHC 32.4 RDW 15.0 Plt Count 442 H MPV 7.1 L Neutrophils % 84.2 H Lymphocytes % 9.0 Monocytes % 5.9 Eosinophils % 0.7 Basophils % 0.2 Sodium 140 Potassium 3.4 L Chloride 101 Carbon Dioxide 30 Anion Gap 9 BUN 12 Creatinine 0.5 L Random Glucose 92 Calcium 8.4 L Tumor Marker AFP Carcinoembryonic Ag CA 125 Antigen Active Medications Generic Name Dose Route Start Last Admin Trade Name Freq PRN Reason Stop Dose Admin Acetaminophen 650 mg 10/03/16 17:52 Tylenol - PO Q4H PRN FEVER OR PAIN Ceftriaxone Sodium 1 gm 10/04/16 10:00 10/06/16 10:05 Rocephin 1gm Ivpb (Pre-Docked) IVPB 1 gm DAILY [facility] Administration Enoxaparin Sodium 40 mg 10/04/16 10:00 10/06/16 10:05 Lovenox - SQ 40 mg DAILY [facility] Administration ASSESSMENT/PLAN:
[2016-10-07] MEDS: ENOXAPARIN NA (PORCINE) 40 MG/0.4 ML DISP.SYRIN SQ SCH (10:00)
[2016-10-07] MEDS: cefTRIAXone 1 GM/50 ML BAG (PRE-DOCKED) IVPB SCH (10:00)
--- NOTE | 2016-10-07 13:34 | PN ---
Progress Note (short form) - Note Progress Note: MEDICAL LONG DISCUSSION WITH FAMILY REGARDING FURTHER TREATMENT PLANS. THEY HAVE DECIDED TO TAKE MRS CAMERON TO [facility] FOR FURTHER WORKUP AND TREATMENT. SHE WILL BE DISCHARGED HOME TO THEIR CARE TODAY AND THEY WILL ARRANGE ADMISSION TO LEONEL ROGERS MD Problem List - Problems (1) Pelvic mass in female Code(s): R19.00 - INTRA-ABD AND PELVIC SWELLING, MASS AND LUMP, UNSP SITE (2) UTI (urinary tract infection) Code(s): N39.0 - URINARY TRACT INFECTION, SITE NOT SPECIFIED Qualifiers: Urinary tract infection type: acute cystitis Hematuria presence: without hematuria Qualified Code(s): N30.00 - Acute cystitis without hematuria (3) Pleural effusion Code(s): J90 - PLEURAL EFFUSION, NOT ELSEWHERE CLASSIFIED (4) Dementia Code(s): F03.90 - UNSPECIFIED DEMENTIA WITHOUT BEHAVIORAL DISTURBANCE Qualifiers: Alzheimer's disease onset: early-onset Dementia behavioral disturbance : without behavioral disturbance (5) Weight loss Code(s): R63.4 - ABNORMAL WEIGHT LOSS
--- NOTE | 2016-10-07 14:24 | PN ---
Progress Note, Physician - Current Medication List Current Medications: Active Medications Acetaminophen (Tylenol -) 650 mg PO Q4H PRN PRN Reason: FEVER OR PAIN Ceftriaxone Sodium (Rocephin 1gm Ivpb (Pre-Docked)) 1 gm IVPB DAILY [facility] Last Admin: 10/07/16 10:00 Dose: 1 gm Enoxaparin Sodium (Lovenox -) 40 mg SQ DAILY [facility] Last Admin: 10/07/16 10:00 Dose: 40 mg - Objective Vital Signs: Vital Signs Temperature 97.3 F L 10/07/16 10:00 Pulse Rate 90 10/07/16 10:00 Respiratory Rate 20 10/07/16 10:00 Blood Pressure 121/68 10/07/16 10:00 O2 Sat by Pulse Oximetry (%) 98 10/06/16 21:00 Labs: CBC, BMP 10/07/16 06:15 10/07/16 06:15 INR, PTT INR 1.43 (0.82-1.09) H 10/03/16 14:00 Problem List - Problems (1) Pelvic mass in female Code(s): R19.00 - INTRA-ABD AND PELVIC SWELLING, MASS AND LUMP, UNSP SITE (2) Urinary frequency Code(s): R35.0 - FREQUENCY OF MICTURITION (3) Dementia Code(s): F03.90 - UNSPECIFIED DEMENTIA WITHOUT BEHAVIORAL DISTURBANCE Qualifiers: Alzheimer's disease onset: early-onset Dementia behavioral disturbance : without behavioral disturbance (4) Tenesmus Code(s): R19.8 - OTH SYMPTOMS AND SIGNS INVOLVING THE DGSTV SYS AND ABDOMEN (5) Ventral hernia Code(s): K43.9 - VENTRAL HERNIA WITHOUT OBSTRUCTION OR GANGRENE Assessment/Plan MRI was reviewed with radiologist. Suggests a large pelvic mass with , ? possible communication into the rectum , and ? colon. Large , ? inoperable mass. May benefit from palliative diverting colostomy. Patient does nit want any procedure. Family want to take her to [facility].
[2016-10-07 15:48] VITALS: BP 122/58; PULSE 93; TEMP 98.5
--- NOTE | 2016-10-07 16:16 | PN ---
Teaching Attending Note Name of Resident: Darshana Prieto ATTENDING PHYSICIAN STATEMENT I saw and evaluated the patient. I reviewed the resident's note and discussed the case with the resident. I agree with the resident's findings and plan as documented. SUBJECTIVE: Patient has no complaints. OBJECTIVE: Vital Signs Period Temp Pulse Resp BP Sys/Cruz Pulse Ox Last 24 Hr 97.3 F-99.2 F 83-97 18-20 104-129/56-77 98-98 GENERAL: The patient is awake, alert, and in no acute distress. LUNGS: Clear to auscultation bilaterally with decreased breath sounds at right base, no wheezes, no crackles, no accessory muscle use. HEART: Regular rate and rhythm, S1, S2 without murmur, rub or gallop. ABDOMEN: Soft, nontender, distended, normoactive bowel sounds, no guarding, no rebound, no hepatosplenomegaly. EXTREMITIES: 2+ pulses, warm, well-perfused, no edema. ASSESSMENT AND PLAN: This is an 86-year-old woman with a history of dementia who comes to the ER because she has been incontinent of stool x 2 months, has urinary frequency, has weight loss and worsening confusion. 1. Diarrhea with incontinence of stool - CT abdomen/pelvis shows a [id number] cm hypodense septated mass in midline of lower pelvis with extrinsic compression of rectum and marked fecal retention, small to moderate right pleural effusion 2. E. coli UTI - On Rocephin (day 5) - change to Ceftin at discharge 3. Acute metabolic encephalopathy, POA, secondary to UTI - Improved 4. Right pleural effusion 5. Pelvic mass, possibly uterine - Pelvic/TV US shows a large heterogeneous solid mass that appears to be inseparable from uterus - MRI of pelvis pending - CEA, CA 125 elevated - AFP normal 6. Dementia 7. Malnutrition and failure to thrive 8. Disposition - OK for discharge home. Family arranging further evaluation at [facility]
--- NOTE | 2016-10-07 16:44 | DS ---
Physical Exam: SUBJECTIVE: Patient seen and examined at bed side at 9am this morning. Patient said " Dr. Barron is going to come and see me this morning, we will be discussing on social matters not medical. Do not touch me or perform any physical examination" Spoke with patients daughter who mentioned that she went to Dr. Vick's office and discussed in depth about the further management. She has planned to take patient home and to take her to another facility for further management. OBJECTIVE: Vital Signs Period Temp Pulse Resp BP Sys/Cruz Pulse Ox Last 24 Hr 97.3 F-99.2 F 83-97 18-20 104-129/56-77 98-98 PHYSICAL EXAM GENERAL: The patient is awake, alert, and oriented x 3 but talking irrelevant things, in no acute distress. refused rest of the physical exam. LABS Laboratory Results - last 24 hr 10/07/16 10/07/16 06:15 06:15 WBC 18.9 H D RBC 3.77 Hgb 10.8 Hct 33.2 MCV 88.1 MCHC 32.4 RDW 15.0 Plt Count 442 H MPV 7.1 L Neutrophils % 84.2 H Lymphocytes % 9.0 Monocytes % 5.9 Eosinophils % 0.7 Basophils % 0.2 Sodium 140 Potassium 3.4 L Chloride 101 Carbon Dioxide 30 Anion Gap 9 BUN 12 Creatinine 0.5 L Random Glucose 92 Calcium 8.4 L Abdominal/pelvic CT: IMPRESSION: a 13 x 10 x 9 cm hypodense septated structure is seen within the midline of the lower pelvis which appears to represent nonspecific uterine enlargement which could be on the basis of confluent degenerative leiomyomas versus representing partially necrotic malignant disease. There is resultant extrinsic compression of the contiguous rectum with resultant effacement of the rectal lumen. Marked fecal retention is seen within the remainder of the colon. A small amount of free fluid is noted within the abdomen and pelvis bilaterally. There is a small to moderate right pleural effusion. Several hepatic cysts are seen. HOSPITAL COURSE: Date of Admission:10/03/16 Date of Discharge: 10/07/16 Patient is a 86 year old female with no significant past medical history except for dementia (poor historian), presented to the ED with the chief complaints of 2 month history of fecal incontinence, (15-20x per day, as per ), and increased urinary frequency as per patient. Admitted with the diagnosis of Altered mental status possibly secondary to UTI. Patient was taken to her PCP on 10/03/2016, found to have 7lb weight loss since last year, dramatic decline in cognition. As per family patient was unaware of the symptoms. They also stated that she has had increased abdominal extension over the past two months. Patient was treated with Ceftriaxone 1gm daily for UTI (E. coli) during this admission for 4 days. Abdominal/Pelvis CT scan showed 13 x 10 x 9 cm hypodense septated structure is seen within the midline of the lower pelvis which appears to represent nonspecific uterine enlargement which could be on the basis of confluent degenerative leiomyomas versus representing partially necrotic malignant disease.. Detailed report mentioned as above. Most likely the mass is causing her urinary symptoms and the fecal incontinence. Patient's family discussed with Dr. Vick (PCP) about discharging the patient home today and then would like to take her to tertiary facility this week for possible surgery/further management. Hence discharging the patient on Ceftin for 3 more days for UTI. Patient's daughter has been explained to bring the patient to the ED immediately incase the symptoms worsen or if any new symptoms develop and to follow up at the tertiary center for the pelvic mass. Case discussed with Dr. Rogel and Dr. Vick. Minutes to complete discharge: 40 Discharge Summary Reason For Visit: UTI Condition: Stable - Instructions Diet, Activity, Other Instructions: Your symptoms are most likely due to pelvic mass which was seen in the CT scan of abdomen/Pelvis. Your daughter has spoken with Dr. Vick in depth regarding the further plan of care. They want to take you to a different facility for possible surgery. Would suggest you to have the surgery done in order to reduce the symptoms you are having like fecal/urinary incontinence, frequency of urination. Please take the antibiotics for three more days, two times a day which is given to treat urinary tract infection (organism : E. Coli). Return to the Emergency Department immediately if your symptoms worsen or if you develop any new symptoms. Please visit your primary doctor this week. Referrals: Ron Vick MD [Primary Care Provider] - Sindy Banuelos MD [Staff Physician] - Beny Moon MD [Staff Physician] - Disposition: HOME - Home Medications Comprehensive Discharge Medication List: Ambulatory Orders Cefuroxime Axetil [Ceftin] 250 mg PO BID #6 susp.recon 10/07/16 This patient is new to me today: Yes Date on this admission: 10/07/16 Emergency Visit: Yes ED Registration Date: 10/03/16 Care time: The patient presented to the Emergency Department on the above date and was hospitalized for further evaluation of their emergent condition. Critical Care patient: No - Discharge Referral Referred to [facility] Med P.C.: No
== END 2016-10-07 15:58 | disposition home or self-care (01) | DRG 391 ==
LOC: JER 12:41 → JERBED 16:50 → J5S 19:12
PROVIDERS: ADMIT Internal Medicine; ATTEND Internal Medicine
DX: R19.09 Other intra-abdominal and pelvic swelling, mass and lump (principal); G93.41 Metabolic encephalopathy; Z68.1 Body mass index [BMI] 19.9 or less, adult; N39.0 Urinary tract infection, site not specified; E46 Unspecified protein-calorie malnutrition; J90 Pleural effusion, not elsewhere classified; R15.9 Full incontinence of feces; R35.0 Frequency of micturition; F03.90 Unspecified dementia, unspecified severity, without behavioral disturbance, psychotic disturbance, mood disturbance, and anxiety; R53.81 Other malaise; B96.20 Unspecified Escherichia coli [E. coli] as the cause of diseases classified elsewhere; R62.7 Adult failure to thrive; K43.9 Ventral hernia without obstruction or gangrene; R19.8 Other specified symptoms and signs involving the digestive system and abdomen; E87.6 Hypokalemia
CPT/HCPCS: 36415; 70450-TC; 71010-TC; 71250-TC; 72197-TC; 74177-TC; 76830-TC; 76856-TC; 80048; 80053; 81003; 81015; 82105; 82272; 82378; 82550; 83735; 84100; 84484; 85025; 85610; 86304; 86850; 86900; 86901; 87086; 87186; 93005; 93010; 99282-25; A9576